=== PATIENT | female | born 1980 | race Caucasian/White ===

== ENCOUNTER 2024-09-02 15:31 | Emergency (ER) | payer OTHER ==
[~2024-09-02] VITALS: Ht 157.5 cm; Wt 74.8 kg
== END 2024-09-02 15:41 | disposition home or self-care (01) ==
LOC: ER 15:31
DX: K02.9 Dental caries, unspecified (principal); J44.9 Chronic obstructive pulmonary disease, unspecified; Z87.891 Personal history of nicotine dependence
CPT/HCPCS: 99282